=== PATIENT | female | born 1950 | race Caucasian/White ===

== ENCOUNTER → 2016-09-06 | Outpatient (CLI) | payer MEDICARE ==
[2016-09-06 14:18] LABS: HEMOGLOBIN 14.7 g/dL (11.7-16.4)
== END | disposition home or self-care (01) ==
LOC: LAB 14:05
PROVIDERS: ATTEND Internal Medicine
DX: R05 Cough (principal)
CPT/HCPCS: 36415; 85025

== ENCOUNTER → 2016-10-17 | Outpatient (CLI) | payer MEDICARE | END | disposition home or self-care (01) | LOC: CFH 13:11 | PROVIDERS: ATTEND Internal Medicine | DX: R91.1 Solitary pulmonary nodule (principal); S32.019A Unspecified fracture of first lumbar vertebra, initial encounter for closed fracture; S22.069A Unspecified fracture of T7-T8 vertebra, initial encounter for closed fracture; S22.079A Unspecified fracture of T9-T10 vertebra, initial encounter for closed fracture; X58.XXXA Exposure to other specified factors, initial encounter; Y93.89 Activity, other specified; Y92.89 Other specified places as the place of occurrence of the external cause; Y99.8 Other external cause status | CPT/HCPCS: 71250 ==

== ENCOUNTER → 2017-04-23 | Outpatient (CLI) | payer MEDICARE | END | disposition home or self-care (01) | LOC: CFH 11:44 | PROVIDERS: ATTEND Internal Medicine | DX: N63.20 Unspecified lump in the left breast, unspecified quadrant (principal); Z80.3 Family history of malignant neoplasm of breast | CPT/HCPCS: 76641; G0206 ==

== ENCOUNTER → 2017-09-16 | Outpatient (CLI) | payer MEDICARE ==
[~2017-09-16] MED LIST: ALBU8.5H8 INH; ALBUTEROL SULFATE 2.5 MG/3 ML NPPB PRN; BUDE10.2 INH; ESTR0.6246 PO; FEXO180T72 PO; FLUT9.9S NS; IPRA15SP NS; LORA10CA PO; OMEP-110 PO; PRED10TA PO; TURM500C4 PO; vitamin e PO
== END | disposition home or self-care (01) ==
LOC: CFH 15:00
PROVIDERS: ATTEND Nurse Practitioner
DX: J45.50 Severe persistent asthma, uncomplicated (principal)
CPT/HCPCS: 31660; 71250; 94060; 94640

== ENCOUNTER 2017-10-16 06:54 | Day surgery (SDC) | payer MEDICARE ==
[~2017-10-16] VITALS: Ht 162.6 cm; Wt 85.5 kg
[~2017-10-16 06:54] MED LIST changes: -ALBUTEROL SULFATE 2.5 MG/3 ML NPPB PRN
[2017-10-16 07:33] VITALS: BP 122/81
[2017-10-16] MEDS ORDERED: SODIUM CHLORIDE 0.9% 1,000 ML IV SCH (07:35)
[2017-10-16] MEDS ORDERED: ALBUTEROL SULFATE 2.5 MG/3 ML ONE ×2 (08:06→12:03)
[2017-10-16] MEDS ORDERED: DIPHENHYDRAMINE 50 MG/ML, 1ML ONE (08:18)
[2017-10-16] MEDS ORDERED: MIDAZOLAM 1 MG/ML, 5ML ONE ×2 (08:28)
[2017-10-16] MEDS ORDERED: FENTANYL PF 100 MCG/2ML ONE (08:28)
[2017-10-16] MEDS ORDERED: GLYCOPYRROLATE 0.2MG/1ML, 5ML IVPush ONE (08:30)
[2017-10-16] MEDS ORDERED: LIDOCAINE 4% TOPICAL SOLUTION 50 ML ONE (11:05)
[2017-10-16] MEDS ORDERED: LIDOCAINE GEL 2%, 5ML ONE (11:05)
[2017-10-16] MEDS ORDERED: LIDOCAINE 2%, 20ML ONE (11:05)
[2017-10-16] MEDS ORDERED: ALBUTEROL SULFATE 2.5 MG/3 ML NPPB PRN (12:30)
== END 2017-10-16 13:15 ==
LOC: OUT 06:54
PROVIDERS: ATTEND Internal Medicine
DX: J45.50 Severe persistent asthma, uncomplicated (principal); K21.9 Gastro-esophageal reflux disease without esophagitis; J30.9 Allergic rhinitis, unspecified; Z88.7 Allergy status to serum and vaccine; Z88.8 Allergy status to other drugs, medicaments and biological substances
CPT/HCPCS: 31660; 94060; 94640; 99152; 99153; C1886; J1200; J2250; J3010; J3490; J7613; 31622

== ENCOUNTER 2017-11-08 08:51 | Day surgery (SDC) | payer MEDICARE ==
[~2017-11-08] VITALS: Ht 162.6 cm; Wt 83.9 kg
[2017-11-08 09:54] VITALS: BP 154/85
[2017-11-08] MEDS ORDERED: GLYCOPYRROLATE 0.4 MG/2 ML, 2ML ONE (09:59)
[2017-11-08] MEDS ORDERED: SODIUM CHLORIDE 0.9% 1,000 ML IV SCH (10:00)
[2017-11-08] MEDS ORDERED: DIPHENHYDRAMINE 50 MG/ML, 1ML ONE (10:01)
[2017-11-08] MEDS ORDERED: ALBUTEROL SULFATE 2.5 MG/3 ML ONE (10:06)
[2017-11-08] MEDS ORDERED: ALBUTEROL/IPRATROPIUM 2.5MG/0.5MG, 3 ML ONE (10:06)
[2017-11-08] MEDS ORDERED: ALBUTEROL SULFATE 2.5 MG/3 ML NPPB PRN (10:30)
[2017-11-08] MEDS ORDERED: FENTANYL PF 100 MCG/2ML ONE (10:45)
[2017-11-08] MEDS ORDERED: MIDAZOLAM 1 MG/ML, 5ML ONE (10:46)
[2017-11-08] MEDS ORDERED: LIDOCAINE GEL 2%, 5ML ONE (16:21)
[2017-11-08] MEDS ORDERED: LIDOCAINE 2%, 20ML ONE (16:21)
[2017-11-08] MEDS ORDERED: LIDOCAINE 4% TOPICAL SOLUTION 50 ML ONE (16:21)
== END 2017-11-08 15:55 ==
LOC: OUT 08:51
PROVIDERS: ATTEND Internal Medicine
DX: J45.50 Severe persistent asthma, uncomplicated (principal); F41.9 Anxiety disorder, unspecified; K21.9 Gastro-esophageal reflux disease without esophagitis
CPT/HCPCS: 31661; 94060; 94640; 99152; 99153; C1886; J1200; J2250; J3010; J3490; J7030; J7613

== ENCOUNTER → 2018-03-13 | Outpatient (CLI) | payer MEDICARE | END | disposition home or self-care (01) | LOC: CFH 15:47 | PROVIDERS: ATTEND Nurse Practitioner | DX: J45.40 Moderate persistent asthma, uncomplicated (principal) | CPT/HCPCS: 71046 ==

== ENCOUNTER → 2018-04-28 | Outpatient (CLI) | payer MEDICARE | END | disposition home or self-care (01) | LOC: CFH 09:04 | PROVIDERS: ATTEND Nurse Practitioner | DX: Z13.820 Encounter for screening for osteoporosis (principal); M85.88 Other specified disorders of bone density and structure, other site; M81.0 Age-related osteoporosis without current pathological fracture; N95.8 Other specified menopausal and perimenopausal disorders | CPT/HCPCS: 77080 ==

== ENCOUNTER → 2018-05-02 | Outpatient (CLI) | payer MEDICARE | END | disposition home or self-care (01) | LOC: CFH 09:21 | PROVIDERS: ATTEND Nurse Practitioner | DX: Z12.31 Encounter for screening mammogram for malignant neoplasm of breast (principal); Z80.3 Family history of malignant neoplasm of breast | CPT/HCPCS: 77063; 77067 ==

== ENCOUNTER 2019-05-04 08:10 | Outpatient (CLI) | payer MEDICARE | END 2019-05-04 23:59 | disposition home or self-care (01) | LOC: CFH 08:10 | PROVIDERS: ATTEND Nurse Practitioner | DX: Z12.31 Encounter for screening mammogram for malignant neoplasm of breast (principal); N64.89 Other specified disorders of breast; Z87.891 Personal history of nicotine dependence | CPT/HCPCS: 77063; 77067 ==

== ENCOUNTER → 2019-05-20 | Outpatient (CLI) | payer MEDICARE | END | disposition home or self-care (01) | LOC: CFH 14:31 | PROVIDERS: ATTEND Nurse Practitioner | DX: R92.2 Inconclusive mammogram (principal) | CPT/HCPCS: 76641 ==